=== PATIENT | male | born 1950 | race Caucasian/White ===

== ENCOUNTER 2017-10-12 09:41 | Emergency (ER) | payer OTHER ==
[2017-10-12 10:05] VITALS: BP 126/73; PULSE 89; TEMP 98.7; BMI 21.7
--- NOTE | 2017-10-12 11:46 | PDOC ---
History of Present Illness - General Chief Complaint: Cold Symptoms Stated Complaint: PCP: SENT Time Seen by Provider: 10/12/17 11:30 History Source: Patient Exam Limitations: No Limitations - History of Present Illness Initial Comments: CHIEF COMPLAINT: 67 y/o afebrile male with PMH COPD c/o cough and congestion x 10 days. HISTORY OF PRESENT ILLNESS: The patient states he was originally seen by Dr. Logan 10 days ago, initially told he was flu negative but when his symptoms didn't improve was told he was flu positive. He states he took tamiflu for 5 days but the medicine makes him feel worse so he stopped it. He still feels nasal and lung congestion and states he ran out of his nebulizer medicine because when he turned 67 2 weeks ago he switches to medicare and didn't get a refill. He denies f/c, n/v/d, DOYLE, neck pain, runny nose, productive cough, CP, abd pain, back pain and all other symptoms. He has been taking advil which does help him some. He thinks he just needs his breathing treatment. Vital signs on arrival are within normal limits. REVIEW OF SYSTEMS: GENERAL/CONSTITUTIONAL: No fever/chills. No weakness. No weight change. HEAD, EYES, EARS, NOSE AND THROAT: +nasal congestion. No change in vision. No ear pain or discharge. No sore throat. CARDIOVASCULAR: +SOB (this is his baseline). No chest pain. RESPIRATORY: +dry cough. No wheezing or hemoptysis. GASTROINTESTINAL: No abd pain, nausea, vomiting, diarrhea. GENITOURINARY: No dysuria, frequency, or change in urination. MUSCULOSKELETAL: No joint or muscle swelling or pain. No neck or back pain. SKIN: No rash or easy bruising. NEUROLOGIC: No headache, vertigo, loss of consciousness, or loss of sensation. PHYSICAL EXAM: GENERAL: The patient is awake, alert, and fully oriented, in no acute distress. He is very well appearing, ambulatory and pleasant. HEAD: Normal with no signs of trauma. No TTP of sinuses ENT: Pupils equal, round and reactive to light, extraocular movements intact, sclera anicteric, conjunctiva clear. Neck supple. LUNGS: Expiratory wheezing in posterior esparza, worse on bottom left. Normal excursion. No respiratory distress or use of accessory muscles. CV: RRR, S1/S2, no MRG. Cap refill < 2 sec. ABDOMEN: Soft, non-distended, non-tender even to deep palpation, no hepatomegaly or splenomegaly, no masses. EXTREMITIES: Normal range of motion, no edema. NEUROLOGICAL: Normal speech, normal gait. CN II-XII grossly intact. SKIN: Warm, dry, normal turgor, no rashes or lesions noted. Past History - Past Medical History Allergies/Adverse Reactions: Allergies Allergy/AdvReac Type Severity Reaction Status Date / Time Penicillins Allergy Hives Verified 10/12/17 10:01 Home Medications: Ambulatory Orders Albuterol 0.083% Nebulizer Deith [Ventolin 0.083% Nebulizer Soln -] 1 neb NEB Q6H PRN 06/07/16 Acetaminophen [Tylenol .Regular Strength -] 650 mg PO Q6H PRN #0 tablet Albuterol 2.5/Ipratropium 0.5 [Duoneb -] 1 amp NEB Q6H PRN #0 amp 06/10/16 Budesonide/Formeterol Fumarate [SYMBICORT 160/4.5mcg -] 2 puff IH BID #1 inhaler 06/10/16 Fluticasone Prop 0.05% Nasal [Flonase -] 2 spray NS DAILY #1 bottle 06/10/16 Levofloxacin [Levaquin -] 500 mg PO DAILY #7 tablet 06/10/16 Loratadine [Claritin -] 10 mg PO DAILY #30 tablet 06/10/16 Nicotine Patch [Nicoderm Patch -] 21 mg TD DAILY #42 patch 06/10/16 Pantoprazole Sodium [Protonix -] 40 mg PO DAILY #30 tablet.ec 06/10/16 Prednisone 10 mg PO DAILY #30 tablet 06/10/16 Prednisone 10 mg PO DAILY #35 tablet 06/10/16 Sodium Chloride Nasal [place] [Jay [place] Nasal [place] -] 2 spray NS TID PRN #1 bottle 06/10/16 Tiotropium [place] [Spiriva] 1 puff IH DAILY #1 bottle 06/10/16 Albuterol 0.083% Nebulizer Edith [Ventolin 0.083% Nebulizer Soln -] 1 neb NEB Q6H #100 vial 10/12/17 Prednisone [Deltasone -] 40 mg PO DAILY #8 tablet 10/12/17 Cardiac Disorders: Yes (afib) COPD: No DVT: No Dementia: No Kidney Stones: Yes - Surgical History Abdominal Surgery: Yes (LEFT INGUNIAL HERNIA) Neurologic Surgery: Yes (LEFT SHOULDER /spinal sx) Orthopedic Surgery: Yes (left wristsx,shoulder sx) - Immunization History Immunization Up to Date: Yes - Suicide/Smoking/Psychosocial Hx Smoking Status: Yes Smoking History: Current every day smoker Have you smoked in the past 12 months: Yes Number of Cigarettes Smoked Daily: 15 Information on smoking cessation initiated: No 'Breaking Loose' booklet given: 05/06/16 Hx Alcohol Use: No Drug/Substance Use Hx: No Substance Use Type: None *Physical Exam - Vital Signs Last Vital Signs Temp Pulse Resp BP Pulse Ox 98.7 F 89 17 126/73 98 10/12/17 10:02 10/12/17 10:02 10/12/17 10:02 10/12/17 10:02 10/12/17 10:02 Medical Decision Making - Medical Decision Making A/P: 67 y/o male here for congestion and wheezing x 10 days. Pt ran out of nebulizer medication. He is a long time COPDer. Plan is as follows: 1. Duoneb x 2 2. Prednisone Chest xray performed earlier today. No obvious change from prior. The patient states he feels better after 2 duoneb treatments and prednisone. His repeat lung exam reveals continued wheezing but much better lung sounds throughout. WIll discharge the patient to home with rx for albuterol for his home nebulizer and 4 day course of prednisone. Pt instructed to f/u with his PCP within 1 week and return to the ER immediately with any worsening or concerning symptoms. The patient verbalizes understanding of all instructions, has no further questions and is awaiting discharge. *DC/Admit/Observation/Transfer Diagnosis at time of Disposition: Acute exacerbation of COPD with asthma - Discharge Dispostion Disposition: HOME Condition at time of disposition: Improved - Referrals Referrals: Carmelo Logan MD [Primary Care Provider] - Call tomorrow - Patient Instructions Printed Discharge Instructions: DI for Asthma -- Adult, DI for Chronic Obstructive Pulmonary Disease Additional Instructions: Discharge Instructions: -Continue taking your home medications as prescribed -Use nebulizer as prescribed if needed -Complete 4 day course of prednisone -Follow up with Dr. Logan in 1 week -Return to the ER with any worsening or concerning symptoms - Post Discharge Activity
[2017-10-12] MEDS ORDERED: ALBUTEROL SO4 2.5/IPRATROPIUM 0.5 INH SOL 3 ML VIAL.NEB. NEB SCH (12:00)
[2017-10-12] MEDS ORDERED: ALBUTEROL SO4 2.5/IPRATROPIUM 0.5 INH SOL 3 ML VIAL.NEB. NEB ONE ×2 (12:01→12:38)
[2017-10-12] MEDS ORDERED: predniSONE 20 MG TABLET (UD) PO ONE (12:01)
[2017-10-12] MEDS ORDERED: predniSONE 20 MG TABLET (UD) ONE (12:02)
== END 2017-10-12 13:03 | disposition home or self-care (01) ==
LOC: JERFT 09:41
PROC: 3E0F7GC Introduction of Other Therapeutic Substance into Respiratory Tract, Via Natural or Artificial Opening (ICD-10-PCS; principal; 2017-10-12)
DX: J44.1 Chronic obstructive pulmonary disease with (acute) exacerbation (principal); J45.901 Unspecified asthma with (acute) exacerbation; F17.210 Nicotine dependence, cigarettes, uncomplicated; I48.91 Unspecified atrial fibrillation
CPT/HCPCS: 71046-TC; 94640; 99281-25

== ENCOUNTER 2019-03-15 06:04 | Day surgery (SDC) | payer OTHER ==
[2019-03-15 06:33] VITALS: BMI 24.4
[2019-03-15] MEDS ORDERED: TAMSULOSIN HCL 0.4 MG CAP ONE (07:04)
[2019-03-15] MEDS ORDERED: ceFAZolin SODIUM 1 GM VIAL ONE (07:04)
[2019-03-15] MEDS ORDERED: CLINDAMYCIN PHOSPHATE 600 MG/4 ML VIAL ONE (07:06)
[2019-03-15] MEDS ORDERED: ONDANSETRON 4 MG/2 ML VIAL IVPUSH PRN (07:59)
[2019-03-15] MEDS ORDERED: LACTATED RINGERS SOLUTION 1,000 ML IV SCH (08:00)
[2019-03-15] MEDS ORDERED: MIDAZOLAM HCL 2 MG/2 ML SINGLE DOSE VIAL ONE (08:04)
[2019-03-15] MEDS ORDERED: CLINDAMYCIN 600 MG PREMIX BAG IVPB ONE (08:05)
[2019-03-15] MEDS ORDERED: ROCURONIUM BROMIDE 50 MG/5 ML SYRINGE ONE (08:09)
[2019-03-15] MEDS ORDERED: PROPOFOL 20 ML ONE (08:09)
[2019-03-15] MEDS ORDERED: NEOSTIGMINE METHYLSULFATE 0.5 MG/ML - 10 ML MDV ONE (08:38)
[2019-03-15] MEDS ORDERED: ALBUTEROL SO4 0.083% IH SOL 2.5 MG/3 ML VIAL.NEB. NEB ONE (09:18)
[2019-03-15] MEDS ORDERED: ACETAMINOPHEN INJECTION 100 ML IVPB ONE (09:24)
[2019-03-15] MEDS ORDERED: ACETAMINOPHEN 1000 MG/100 ML VIAL (NON FORMULARY) IVPB ONE ×2 (10:00→10:46)
[2019-03-15] MEDS ORDERED: ALBUTEROL SO4 0.042% IH SOL 1.25 MG/3 ML VIAL.NEB NEB ONE (10:47)
--- NOTE | 2019-03-15 12:29 | OP ---
DATE OF OPERATION: 03/15/2019 PREOPERATIVE DIAGNOSIS: Right inguinal hernia. POSTOPERATIVE DIAGNOSIS: Right pantaloon indirect inguinal hernia, attenuation left inguinal space (recurrent left inguinal hernia). PROCEDURE: Laparoscopic repair of recurrent left inguinal hernia with mesh, laparoscopic repair of right inguinal hernia with mesh SURGEON: Uriel Mcghee MD [employer] OPERATOR: Armond Westfall MD ANESTHESIA: Trupti Bingham MD (general), ESTIMATED BLOOD LOSS: Minimal. SPECIMEN: None. DESCRIPTION OF PROCEDURE: This is a 68-year-old gentleman who developed a bulge in the right groin region from severe coughing secondary to his bronchitis. He is symptomatic from a large right inguinal hernia, and therefore, is here for operative repair. Patient was identified and appropriately positioned on the operating room table. After placement of general anesthesia, the abdomen was prepped and draped in the usual sterile fashion with ChloraPrep. An infraumbilical incision was made deep into the subcutaneous tissues. The fascia of the rectus muscle on the right identified, divided sharply. The muscles split. Under direct vision, a dissector balloon followed by structural balloon was placed. Also, under direct vision, a suprapubic 11-mm port placed. The following structures on the right side identified, pubic tubercle, Coopers ligament, inferior epigastric vessels, spermatic cord, and lateral abdominal wall. During this dissection, a small direct inguinal hernia was identified containing fat. This reduced back into the preperitoneal space. He had a moderate to large indirect inguinal hernia sac, which was reduced back in the preperitoneal space with blunt and sharp dissection. A 5 x 6 piece of Versatex mesh was keyhole placed through the suprapubic port site. The mesh wrapped around the cord structures laterally to reconstruct the internal ring. The lateral mesh anchored to the anterior abdominal wall and lateral abdominal wall. Medially, the mesh anchored to the anterior abdominal wall and pubic tubercle and Coopers ligament. Upon completion of the right side, similar structures on the left side identified. On the left side, the patient had no recurrent indirect inguinal hernia sac, but there was a mesh plug in place. He also had a mesh plug in the direct inguinal floor. Around this medial plug, the inguinal floor was attenuated, and he has a small recurrent direct inguinal hernia. This reduced back in the preperitoneal space. Another piece of Versatex was used for the operative repair. This one was cut 4 x 5 and was not keyholed since the cord did not need to be wrapped. The mesh was placed lateral to the cord structures into the preperitoneal space, and medially covered the midline well overlapped with the other piece of mesh, and covered the direct space. Laterally, the mesh anchored to the anterior abdominal wall and lateral abdominal wall. Medially, the mesh anchored to the anterior abdominal wall, pubic tubercle, and Coopers ligament. The preperitoneal space successfully desufflated under direct vision. The operative field was noted to be hemostatic. Ports were removed. Port sites were hemostatic. The fascia at both port sites were reapproximated with interrupted 0 Vicryl suture. All skin closed with 4-0 subcuticular Biosyn followed by Dermabond. At the conclusion of the case, sponge counts were correct. ATTESTATION: Brief operative note handwritten on the preprinted form. [facility] queried prior to giving any narcotics. Gabino BULLOCK [id number] cc: Carmelo Logan MD
[2019-03-15 13:16] VITALS: BP 147/88; PULSE 100; TEMP 98
== END 2019-03-15 13:10 | disposition home or self-care (01) ==
LOC: JASU-SURG 06:04
PROVIDERS: ATTEND Surgery
PROC: 0YUA4JZ Supplement Bilateral Inguinal Region with Synthetic Substitute, Percutaneous Endoscopic Approach (ICD-10-PCS; principal; 2019-03-15 08:00)
DX: K40.21 Bilateral inguinal hernia, without obstruction or gangrene, recurrent (principal)
CPT/HCPCS: 94760; J0131

== ENCOUNTER 2023-04-07 05:25 | Day surgery (SDC) | payer OTHER, MEDICARE ==
[2023-04-06 17:26] VITALS: BMI 22.5
[~2023-04-07 05:25] MED LIST: BUPIVACAINE HCL/PF 0.5% (5MG/ML) 10 ML VIAL IJ ONE; methylPREDNISolone ACET (DEPO) 80 MG/1 ML VIAL IM ONE
[2023-04-07 06:35] VITALS: RESP 18
[2023-04-07] MEDS ORDERED: DEXAMETHASONE SOD PHOSPHATE 10 MG/1 ML VIAL ONE (07:30)
[2023-04-07] MEDS ORDERED: BUPIVACAINE HCL/PF 0.5% (5MG/ML) 10 ML VIAL ONE (07:30)
[2023-04-07] MEDS ORDERED: methylPREDNISolone ACET (DEPO) 80 MG/1 ML VIAL ONE (07:30)
[2023-04-07] MEDS ORDERED: MIDAZOLAM HCL 2 MG/2 ML SINGLE DOSE VIAL ONE (07:50)
[2023-04-07] MEDS ORDERED: PROPOFOL 20 ML ONE (07:57)
[2023-04-07] MEDS ORDERED: methylPREDNISolone ACET (DEPO) 80 MG/1 ML VIAL IM ONE (08:02)
[2023-04-07] MEDS ORDERED: BUPIVACAINE HCL/PF 0.5% (5MG/ML) 10 ML VIAL IJ ONE (08:02)
[2023-04-07 09:20] VITALS: BP 142/67; PULSE 71; TEMP 98.9
== END 2023-04-07 09:15 | disposition home or self-care (01) ==
LOC: JASU-SURG 05:25
PROVIDERS: ATTEND Neurological Surgery
PROC: 3E0R3BZ Introduction of Anesthetic Agent into Spinal Canal, Percutaneous Approach (ICD-10-PCS; 2023-04-07)
PROC: 3E0R33Z Introduction of Anti-inflammatory into Spinal Canal, Percutaneous Approach (ICD-10-PCS; principal; 2023-04-07 07:30)
DX: M48.061 Spinal stenosis, lumbar region without neurogenic claudication (principal); M54.16 Radiculopathy, lumbar region
CPT/HCPCS: 76000-TC-FY; J1100

== ENCOUNTER 2023-04-25 13:42 | Emergency (ER) | payer OTHER, MEDICARE ==
[2023-04-25 13:47] VITALS: BP 155/67; PULSE 84; RESP 16; TEMP 98.1; BMI 24.4
[2023-04-25] MEDS ORDERED: ACETAMINOPHEN 500 MG TABLET (FP) PO ONE (15:19)
[2023-04-25] MEDS ORDERED: LIDOCAINE 5% TOPICAL PATCH TP ONE (15:19)
[2023-04-25] MEDS ORDERED: LIDOCAINE 5% TOPICAL PATCH ONE (15:38)
[2023-04-25] MEDS ORDERED: ACETAMINOPHEN 325 MG TABLET (FP) ONE (15:38)
[2023-04-25] MEDS ORDERED: LIDOCAINE PATCH REMOVAL MC SCH (22:00)
== END 2023-04-25 17:26 | disposition home or self-care (01) ==
LOC: JER 13:42
DX: M54.59 Other low back pain (principal)
CPT/HCPCS: 99283-25

== ENCOUNTER 2023-05-05 16:30 | Emergency (ER) | payer OTHER, MEDICARE ==
[2023-05-05 16:36] VITALS: BP 124/73; PULSE 84; RESP 18; TEMP 98; BMI 21.7
[2023-05-05] MEDS ORDERED: predniSONE 20 MG TABLET (UD) PO ONE (17:39)
[2023-05-05] MEDS ORDERED: ACETAMINOPHEN 325 MG TABLET (FP) PO ONE (17:39)
[2023-05-05] MEDS ORDERED: ACETAMINOPHEN 325 MG TABLET (FP) ONE (17:50)
[2023-05-05] MEDS ORDERED: predniSONE 20 MG TABLET (UD) ONE (17:50)
== END 2023-05-05 17:56 | disposition home or self-care (01) ==
LOC: JERFT 16:30
DX: M54.41 Lumbago with sciatica, right side (principal); G89.29 Other chronic pain; M79.604 Pain in right leg
CPT/HCPCS: 99283-25

== ENCOUNTER 2024-01-24 12:07 | Inpatient (IN) | payer OTHER, MEDICARE ==
[2024-01-24] MEDS ORDERED: ALBUTEROL SO4 2.5/IPRATROPIUM 0.5 INH SOL 3 ML VIAL.NEB. NEB ONE (13:12)
[2024-01-24] MEDS ORDERED: methylPREDNISolone NA SUCC 125 MG/2 ML VIAL ONE (13:13)
[2024-01-24] MEDS ORDERED: ACETAMINOPHEN 325 MG TABLET (FP) ONE (13:13)
[2024-01-24 13:15] LABS: HEMATOCRIT 41.8 % (35.4-49); HEMOGLOBIN 14.4 GM/dL (11.7-16.9); MCH 36.4 pg (25.7-33.7); MCHC 34.5 g/dl (32.0-35.9); MEAN CELL VOLUME 105.3 fl (80-96); MEAN PLT VOLUME 6.9 fl (7.5-11.1); PLATELET COUNT 190 10^3/uL (134-434); RBC 3.97 M/mm3 (4.00-5.60); RDW 14.7 % (11.9-15.9); WHITE BLOOD COUNT 7.6 K/mm3 (4.0-10.0)
[2024-01-24 13:23] LABS: INR 2.04 (0.83-1.09); PROTHROMBIN TIME (PATIENT) 22.6 SEC (9.7-13.0)
[2024-01-24] MEDS: ALBUTEROL SO4 2.5/IPRATROPIUM 0.5 INH SOL 3 ML VIAL.NEB. NEB SCH (13:24)
[2024-01-24] MEDS: methylPREDNISolone NA SUCC 125 MG/2 ML VIAL IVPUSH ONE (13:24)
[2024-01-24] MEDS: ACETAMINOPHEN 500 MG TABLET (FP) PO ONE (13:24)
[2024-01-24 13:25] LABS: ACTIVATED PTT 37.6 SECONDS (25.2-36.5)
[2024-01-24 13:34] LABS: POTASSIUM 3.9 mmol/L (3.5-5.1)
[2024-01-24 13:36] LABS: ALBUMIN 3.6 g/dl (3.4-5.0); BLOOD UREA NITROGEN 20.1 mg/dL (7-18); CALCIUM 9.2 mg/dL (8.5-10.1)
[2024-01-24 13:39] LABS: CREATININE 0.7 mg/dL (0.55-1.3)
[2024-01-24 13:41] LABS: BILIRUBIN,TOTAL 0.5 mg/dL (0.2-1); TOT PROT 6.3 g/dl (6.4-8.2)
[2024-01-24 14:41] LABS: ANISOCYTOSIS 1+; MACROCYTOSIS 0
[2024-01-24] MEDS ORDERED: ALBUTEROL SO4 0.5 % INH SOLN 2.5 MG/0.5 ML VIAL.NEB. NEB PRN (16:22)
[2024-01-24] MEDS ORDERED: ALBUTEROL SO4 2.5/IPRATROPIUM 0.5 INH SOL 3 ML VIAL.NEB. NEB PRN (16:22)
[2024-01-24] MEDS ORDERED: ACETAMINOPHEN 325 MG TABLET (FP) PO PRN (16:22)
[2024-01-24] MEDS ORDERED: methylPREDNISolone NA SUCC 40 MG/1 ML VIAL ONE (18:21)
[2024-01-24] MEDS: methylPREDNISolone NA SUCC 40 MG/1 ML VIAL IVPUSH SCH (18:24)
[2024-01-24] MEDS: RIVAROXABAN 20 MG TABLET PO SCH (21:38)
[2024-01-24] MEDS: MONTELUKAST NA 10 MG TABLET PO SCH (21:38)
[2024-01-24] MEDS: GABAPENTIN 300 MG CAPSULE PO SCH (21:38)
[2024-01-24 23:41] VITALS: BMI 26.6
[2024-01-25 06:53] VITALS: RESP 20
[2024-01-25] MEDS: TAMSULOSIN HCL 0.4 MG CAP PO SCH (08:25)
[2024-01-25 08:49] LABS: HEMATOCRIT 39.2 % (35.4-49); HEMOGLOBIN 13.5 GM/dL (11.7-16.9); MCH 36.3 pg (25.7-33.7); MCHC 34.4 g/dl (32.0-35.9); MEAN CELL VOLUME 105.7 fl (80-96); MEAN PLT VOLUME 7.8 fl (7.5-11.1); PLATELET COUNT 196 10^3/uL (134-434); RBC 3.71 M/mm3 (4.00-5.60); RDW 14.3 % (11.9-15.9); WHITE BLOOD COUNT 16.2 K/mm3 (4.0-10.0)
[2024-01-25 08:54] LABS: CALCIUM 9.3 mg/dL (8.5-10.1)
[2024-01-25 08:55] LABS: ALBUMIN 3.1 g/dl (3.4-5.0)
[2024-01-25 08:58] LABS: CREATININE 0.6 mg/dL (0.55-1.3)
[2024-01-25 09:00] LABS: BILIRUBIN,TOTAL 0.7 mg/dL (0.2-1); TOT PROT 5.9 g/dl (6.4-8.2)
[2024-01-25] MEDS: AMIODARONE HCL 200 MG TABLET PO SCH (09:23)
[2024-01-25] MEDS: UMECLIDINIUM/VILANTEROL (ANORO) 62.5/25 MCG INHALER IH SCH (11:25)
[2024-01-26 05:45] VITALS: BP 141/84; PULSE 70; TEMP 98.2
[2024-01-26] MEDS: ALBUTEROL SO4 0.083% IH SOL 2.5 MG/3 ML VIAL.NEB. NEB PRN (12:23)
== END 2024-01-26 13:31 | disposition home or self-care (01) | DRG 190 ==
LOC: JER 12:07 → JERBED 16:48 → OBSVTOIN 17:28 → J8W 18:35
PROVIDERS: ADMIT Family Medicine; ATTEND Family Medicine
DX: J44.0 Chronic obstructive pulmonary disease with (acute) lower respiratory infection (principal); J18.9 Pneumonia, unspecified organism; J45.901 Unspecified asthma with (acute) exacerbation; J44.1 Chronic obstructive pulmonary disease with (acute) exacerbation; I48.91 Unspecified atrial fibrillation; I10 Essential (primary) hypertension; K21.9 Gastro-esophageal reflux disease without esophagitis; M54.30 Sciatica, unspecified side
CPT/HCPCS: 0241U-QW; 36415; 71045-TC-FY; 80053; 84484; 85025; 85027; 85610; 85730; 93005; 93010; 94640; 99291; G0378

== ENCOUNTER 2024-06-14 09:50 | Emergency (ER) | payer OTHER, MEDICARE ==
[2024-06-14 10:58] VITALS: BP 174/84; PULSE 101; RESP 20; TEMP 98.3; BMI 22.4
[2024-06-14 12:12] LABS: EPI CELLS 2 /uL (0-25.1); HYALINE CASTS 1 /uL (0-3.1); URINE APPEARANCE CLOUDY; URINE BILIRUBIN 1+ (NEGATIVE); URINE COLOR DK YELLOW; URINE GLUCOSE (UA) NEGATIVE (NEGATIVE); URINE KETONE NEGATIVE (NEGATIVE); URINE LEUK ESTERASE 3+ (NEGATIVE); URINE NITRITE POSITIVE (NEGATIVE); URINE PROTEIN 2+ (NEGATIVE); URINE WBC 6316 /uL (0-25.8)
[2024-06-14 12:30] LABS: URINE BACTERIA 30 /uL (0-1359); URINE RBC 184 /uL (0-23.9); YEAST FEW (NEGATIVE)
[2024-06-14] MEDS ORDERED: CEFTRIAXONE 1 GM/50 ML BAG ONE (13:14)
[2024-06-14] MEDS: CEFTRIAXONE 1,000 MG in DEXTROSE 5%-WATER - 50 ML IVPB ONE (13:21)
== END 2024-06-14 15:11 | disposition home or self-care (01) ==
LOC: JER 09:50
DX: N41.0 Acute prostatitis (principal); R30.0 Dysuria; R35.0 Frequency of micturition; R33.9 Retention of urine, unspecified; R10.30 Lower abdominal pain, unspecified
CPT/HCPCS: 81003; 87086; 99284-25

== ENCOUNTER 2024-09-08 16:37 | Emergency (ER) | payer OTHER, MEDICARE ==
[2024-09-08 16:46] VITALS: RESP 18; TEMP 98; BMI 23.0
[2024-09-08] MEDS ORDERED: METHOCARBAMOL 500 MG TABLET ONE (18:30)
[2024-09-08 18:31] LABS: BASO % 0.4 % (0-2.0); EOS % 0.3 % (0-4.5); HEMATOCRIT 38.8 % (35.4-49); HEMOGLOBIN 13.5 GM/dL (11.7-16.9); LYMPH % 9.4 % (8-40); MCH 36.3 pg (25.7-33.7); MCHC 34.7 g/dl (32.0-35.9); MEAN CELL VOLUME 104.6 fl (80-96); MEAN PLT VOLUME 7.1 fl (7.5-11.1); MONO % 7.9 % (3.8-10.2); PLATELET COUNT 284 10^3/uL (134-434); RBC 3.71 M/mm3 (4.00-5.60); RDW 13.5 % (11.9-15.9); WHITE BLOOD COUNT 8.7 K/mm3 (4.0-10.0)
[2024-09-08] MEDS ORDERED: LIDOCAINE 4% PATCH TP ONE (18:31)
[2024-09-08] MEDS ORDERED: morphine SULFATE 4 MG/ML VIAL ONE (18:31)
[2024-09-08] MEDS: LIDOCAINE 4% PATCH TP ONE (18:39)
[2024-09-08] MEDS: morphine CARPU-JECT 4 MG/1 ML DISP.SYRIN IVPUSH ONE (18:40)
[2024-09-08] MEDS: METHOCARBAMOL 500 MG TABLET PO ONE (18:41)
[2024-09-08 18:48] LABS: POTASSIUM 4.6 mmol/L (3.5-5.1)
[2024-09-08 18:51] LABS: ALBUMIN 3.8 g/dl (3.4-5.0); BLOOD UREA NITROGEN 23.2 mg/dL (7-18)
[2024-09-08 18:54] LABS: CREATININE 0.7 mg/dL (0.55-1.3)
[2024-09-08 18:55] LABS: BILIRUBIN,TOTAL 0.4 mg/dL (0.2-1)
[2024-09-08 18:56] LABS: TOT PROT 6.2 g/dl (6.4-8.2)
[2024-09-08 21:30] LABS: PH,URINE 5.5 (5.0-8.0); URINE APPEARANCE CLEAR; URINE BILIRUBIN NEGATIVE (NEGATIVE); URINE COLOR YELLOW; URINE GLUCOSE (UA) NEGATIVE (NEGATIVE); URINE KETONE NEGATIVE (NEGATIVE); URINE LEUK ESTERASE NEGATIVE (NEGATIVE); URINE NITRITE NEGATIVE (NEGATIVE); URINE PROTEIN NEGATIVE (NEGATIVE); URINE UROBILINOGEN 0.2 mg/dL (0.2-1.0)
[2024-09-08 22:38] VITALS: BP 154/90; PULSE 93
== END 2024-09-08 22:49 | disposition home or self-care (01) ==
LOC: JER 16:37
PROC: 3E033NZ Introduction of Analgesics, Hypnotics, Sedatives into Peripheral Vein, Percutaneous Approach (ICD-10-PCS; principal; 2024-09-08)
DX: R07.89 Other chest pain (principal); R10.9 Unspecified abdominal pain; M54.6 Pain in thoracic spine; X50.1XXA Overexertion from prolonged static or awkward postures, initial encounter
CPT/HCPCS: 36415; 71101-TC-LT-FY; 74176-TC; 80053; 81003; 85025; 87086; 99285-25